=== PATIENT | female | born 1935 | race Caucasian/White ===

== ENCOUNTER → 2020-07-09 10:20 | Outpatient (CLI) | payer MEDICARE, OTHER, SELFPAY ==
[2020-07-09 15:38] LABS: COVID19 -Nasal RAPID Negative (Negative)
== END ==
PROVIDERS: PCP Student in an Organized Health Care Education/Training Program; Visit Provider Student in an Organized Health Care Education/Training Program
DX: Z01.812 Encounter for preprocedural laboratory examination (principal); Z20.822 Contact with and (suspected) exposure to COVID-19
CPT/HCPCS: 87635; C9803

== ENCOUNTER 2020-07-10 07:24 | Day surgery (SDC) | payer MEDICARE, OTHER, SELFPAY ==
[2020-07-10] MEDS: PROPARACAINE 0.5% OPHTH SOL 2 DROPS EYE-OP (07:44)
[2020-07-10] MEDS: CATARACT EYE COMPOUND (10 DROPS/SYRINGE) 3 DROPS EYE-OP (07:44)
[2020-07-10 07:59] VITALS: BP 176/81; PULSE 80; RESP 16; TEMP 37.1; O2SAT 99; BMI 24.7
--- NOTE | 2020-07-10 09:03 | PM.PREOP ---
Pre-operative Note Interval Note History & Physical reviewed/Exam performed by Physician: Yes Changes to H&P: No
--- NOTE | 2020-07-10 09:03 | PM.OP.1 ---
Operative Date/Time/Diagnoses Pre-op diagnosis: Nuclear cataract right eye Procedure & Clinicians Procedure: Cataract Surgery Same procedure as scheduled: Yes Surgeon: Blair Bone Anesthesia Type: MAC +/- and Sedation Operative Notes Procedure in detail: Patient brought to the operating suite. Tetracaine drops placed in the right eye. Patient was prepped and draped in sterile manner. Wire lid speculum was placed in the eye. Betadine drops were placed on the eye. This was irrigated. Lidocaine jelly was placed on the eye. A paracentesis port was created with a side-port blade. 0.1 mL 1% preservative free lidocaine was injected into the anterior chamber. The anterior chamber was deepened with viscoelastic. 2.6 mm keratome was used to create a temporal clear corneal incision. Cystotome and Utrata forceps were used to create continuous tear capsulorrhexis. Balanced salt solution was used to hydro dissect the nucleus. The phacoemulsification handpiece was inserted and the nucleus was removed using the stop and chop technique. The irrigation aspiration handpiece was inserted and the remaining cortex was removed. Anterior chamber was deepened with viscoelastic. An Souza ZCB00 intraocular lens with a power of 23.0 was injected into the capsular bag. Irrigation aspiration handpiece was inserted and the remaining viscoelastic was removed. Incision was hydrated with balanced salt solution and found to be leak free with pressure with Weck-Jeni sponges. 0.1 mL Vigamox injected anterior chamber. 0.3 mL Kenalog 10 mg was injected subconjunctivally. Lid speculum was removed. The patient left the operating room in excellent condition. Complications: none Post-operative Condition: stable Disposition: same day surgery
[2020-07-10] MEDS: LIDOCAINE 2% (GLYDO) 6 ML GEL TOP (09:22)
[2020-07-10] MEDS: TRIAMCINOLONE 50 MG/5 ML VIAL INJ (09:22)
[2020-07-10] MEDS: BALANCED SALT IRRIG SOLN NO.2 500 ML, EPINEPHrine 1 MG IRR (09:22)
[2020-07-10] MEDS: PHENYLEPHRINE/LIDOCAINE VIAL (OR) 0.2 ML EYE-OP (09:23)
[2020-07-10] MEDS: TETRACAINE 0.5% OPHTH DROPS 4 ML 2 DROPS EYE-OP (09:23)
[2020-07-10] MEDS: CHONDROIDTIN/SOD HYALURONATE 1.05 ML SYRINGE INTRAOCULA (09:23)
[2020-07-10] MEDS: MOXIFLOXACIN INJ 4 MG/0.8 ML VIAL 0.5 MG EYE-OP (09:23)
== END 2020-07-10 09:43 | disposition home or self-care (01) ==
PROVIDERS: PCP Family Medicine; Referring Provider Family Medicine; Visit Provider Ophthalmology
PROC: (CPT 66984; principal; 2020-07-10 09:15)
DX: H25.11 Age-related nuclear cataract, right eye (principal); E03.9 Hypothyroidism, unspecified
CPT/HCPCS: 66984; J0171; J2250; J3301

== ENCOUNTER → 2020-07-21 09:43 | Outpatient (CLI) | payer MEDICARE, OTHER, SELFPAY ==
[2020-07-21 12:00] LABS: COVID19 -Nasal RAPID Negative (Negative)
== END ==
PROVIDERS: PCP Family Medicine; Visit Provider Physician Assistant
DX: Z20.822 Contact with and (suspected) exposure to COVID-19 (principal); Z01.812 Encounter for preprocedural laboratory examination
CPT/HCPCS: 87635; C9803

== ENCOUNTER 2020-07-24 08:29 | Day surgery (SDC) | payer MEDICARE, OTHER, SELFPAY ==
[2020-07-24] MEDS: CATARACT EYE COMPOUND (10 DROPS/SYRINGE) 3 DROPS EYE-OP (08:54)
[2020-07-24] MEDS: PROPARACAINE 0.5% OPHTH SOL 2 DROPS EYE-OP (08:54)
[2020-07-24 09:13] VITALS: BP 183/81; PULSE 78; RESP 18; TEMP 36.3; O2SAT 99; BMI 24.7
--- NOTE | 2020-07-24 09:57 | P.OP_ITS ---
Operative Date/Time/Diagnoses Pre-op diagnosis: Nuclear Cataract Left eye Post-op diagnosis: same Procedure & Clinicians Same procedure as scheduled: Yes Surgeon: Blair Bone Anesthesia Type: MAC +/- and Sedation Operative Notes Procedure in detail: Patient brought to the operating suite. Tetracaine drops placed in the left eye. Patient was prepped and draped in sterile manner. Wire lid speculum was placed in the eye. Betadine drops were placed on the eye. This was irrigated. Lidocaine jelly was placed on the eye. A paracentesis port was created with a side-port blade. 0.1 mL 1% preservative free lidocaine was injected into the anterior chamber. The anterior chamber was deepened with viscoelastic. 2.6 mm keratome was used to create a temporal clear corneal incision. Cystotome and Utrata forceps were used to create continuous tear capsulorrhexis. Balanced salt solution was used to hydro dissect the nucleus. The phacoemulsification handpiece was inserted and the nucleus was removed using the stop and chop technique. The irrigation aspiration handpiece was inserted and the remaining cortex was removed. Anterior chamber was deepened with viscoe lastic. An Souza DIB00 intraocular lens with a power of 23.0 was injected into the capsular bag. Irrigation aspiration handpiece was inserted and the remaining viscoelastic was removed. Incision was hydrated with balanced salt solution and found to be leak free with pressure with Weck-Jeni sponges. 0.1 mL Vigamox injected anterior chamber. 0.3 mL Kenalog 10 mg was injected subconjunctivally. Lid speculum was removed. The patient left the operating room in excellent condition. Complications: none Post-operative Condition: stable Disposition: same day surgery
--- NOTE | 2020-07-24 09:57 | PM.PREOP ---
Pre-operative Note Interval Note History & Physical reviewed/Exam performed by Physician: Yes Changes to H&P: No
[2020-07-24] MEDS: CHONDROIDTIN/SOD HYALURONATE 1.05 ML SYRINGE INTRAOCULA (10:10)
[2020-07-24] MEDS: TRIAMCINOLONE 50 MG/5 ML VIAL INJ (10:11)
[2020-07-24] MEDS: MOXIFLOXACIN INJ 4 MG/0.8 ML VIAL 0.5 MG EYE-OP (10:11)
[2020-07-24] MEDS: TETRACAINE 0.5% OPHTH DROPS 4 ML 2 DROPS EYE-OP (10:11)
[2020-07-24] MEDS: PHENYLEPHRINE/LIDOCAINE VIAL (OR) 0.2 ML EYE-OP (10:11)
[2020-07-24] MEDS: BALANCED SALT IRRIG SOLN NO.2 500 ML, EPINEPHrine 1 MG IRR (10:12)
[2020-07-24] MEDS: LIDOCAINE 2% (GLYDO) 6 ML GEL TOP (10:12)
[2020-07-24 10:35] VITALS: BP 183/81; PULSE 78; RESP 18; TEMP 36.3; O2SAT 99
== END 2020-07-24 10:37 | disposition home or self-care (01) ==
PROVIDERS: PCP Family Medicine; Referring Provider Ophthalmology; Visit Provider Ophthalmology
PROC: (CPT 66984; principal; 2020-07-24 10:15)
DX: H25.12 Age-related nuclear cataract, left eye (principal); E03.9 Hypothyroidism, unspecified
CPT/HCPCS: 66984; J0171; J2250; J3301

== ENCOUNTER 2021-08-08 03:53 | Emergency (ER) | payer MEDICARE, OTHER, SELFPAY ==
--- NOTE | 2021-08-08 04:04 | ED.GENADULT ---
HPI - General Adult General Chief complaint: Chest Pain Stated complaint: HIGH BLOOD PRESSURE Time Seen by Provider: 08/08/21 04:04 History of Present Illness HPI narrative: 86-year-old woman with a history of hypothyroidism and hypertension presents with complaints of feeling shaky. She notes that when she feels like this she will check her blood pressure and it is elevated. It is not clear what her blood pressure is in between those times but she states that it is ?normal? even though she has not checked it. She was seen at [facility] for similar complaints about a week ago and was started on 50 mg of losartan. Those records have been requested. She did follow-up with the primary clinic after that with no changes and an appointment scheduled for the 6 to follow-up. Her complaints are otherwise vague. She does not specifically have headache, chest pain, abdominal pain, dyspnea, orthopnea, fevers, weakness and can not further elucidate on her claims of ?feeling shaky?. She does not describe fevers, cough, abdominal pain, vomiting, diarrhea or constipation. Medical records from [facility] visit on July 29 indicate very similar presentation. At that time she had indicated there was a in her family and since then she had been stressed and begin measuring blood pressures at home 5 days prior to arrival in the emergency department. She had been finding systolics no lower than the 150-160 range. Workup was otherwise unremarkable and she was discharged home with 50 mg tablets of losartan and instructions to follow-up with her primary care doctor Related Data Home Medications Medication Instructions Recorded Confirmed cholecalciferol (vitamin D3) 25 1,000 unit PO QDAY #0 12/24/16 07/24/20 mcg (1,000 unit) tablet (Vitamin D3) levothyroxine 100 mcg tablet 100 mcg PO QAM #0 12/24/16 07/24/20 (Synthroid) Previous Rx's Medication Instructions Recorded losartan 100 mg tablet 100 mg PO DAILY #30 tab 08/08/21 Allergies Allergy/AdvReac Type Severity Reaction Status Date / Time No Known Drug Allergies Allergy Verified 07/24/20 08:54 Review of Systems Review of Systems Narrative: Remainder of complete review of systems is otherwise unremarkable except for that included in the HPI. Patient History Medical History (Updated 08/08/21 @ 05:53 by Carito Dejesus MD) Cataracts, bilateral Hypertension Hypothyroidism (acquired) Social History household members: spouse Smoking Status: Never smoker alcohol intake: current Smoking Status: Never smoker alcohol intake frequency: holidays/special occasions only Substance Use Type: does not use Exam Initial Vital Signs Initial Vital Signs: Vital Signs Pulse Rate 103 H 08/08/21 04:07 Pulse Oximetry 97 08/08/21 04:07 General: Frail-appearing but in no acute distress. HEENT: Moist mucous membranes, normal sclera with reactive pupils, Neck: No JVD, supple Respiratory: Lungs are clear to auscultation, no wheezing no rales no rhonchi. Full and symmetrical air movement Cardiac: Regular rate and rhythm no murmurs no bruits Abdomen: Soft, nontender, good bowel tones, no flank pain Skin: Warm and dry, no rashes Neurologic: Grossly neurologically intact with no obvious asymmetries or abnormalities Extremities: No trauma, well perfused, no lower extremity edema Psych: Cooperative, slight confusion but fluent speech Course Orders Ordered: ED Orders 08/08/21 04:10 Complete Blood Count AUTO DIFF Stat Comprehensive Metabolic Panel Stat Magnesium Stat Troponin I Stat 08/08/21 04:23 XR chest 1V Stat Vital Signs Vital signs: Vital Signs - 8 hr 08/08/21 04:07 08/08/21 04:10 08/08/21 04:30 Temperature 97.8 F Pulse Rate 103 H 89 80 Respiratory Rate 15 Blood Pressure 224/101 H 217/89 H Pulse Oximetry 97 97 98 08/08/21 05:00 08/08/21 05:01 Temperature Pulse Rate 71 Respiratory Rate Blood Pressure 181/77 H Pulse Oximetry 98 96 Medical Decision Making Lab Data Result diagrams: 08/08/21 04:10 08/08/21 04:10 Labs: Lab Results 08/08/21 08/08/21 08/08/21 Range/Units 04:10 04:10 04:10 WBC 4.9 (4.5-11.0) X10^3/uL RBC 4.91 (4.0-5.2) X10^6/uL Hgb 13.8 (12.0-16.0) g/dL Hct 40.8 (36-46) % MCV 83.1 (80-100) fL MCH 28.2 (26-34) PG MCHC 33.9 (30-36) % RDW 13.5 (11.6-14.8) % Plt Count 151 (150-400) X10^3/uL Neut % (Auto) 55.9 (50-75) % Lymph % (Auto) 35.6 (25-40) % [place] % (Auto) 4.5 (3-14) % Eos % (Auto) 3.2 (2-4) % Baso % (Auto) 0.8 (0-2) % Neut # (Auto) 2700 (3728-3368) /uL Lymph # (Auto) 1700 (9161-2581) /uL [place] # (Auto) 200 (0-900) /uL Eos # (Auto) 200 (0-450) /uL Baso # (Auto) 0 (0-100) /uL Sodium 141 (137-145) mmol/L Potassium 3.9 (3.4-5.1) mmol/L Chloride 107 (98-107) mmol/L Carbon Dioxide 25 (22-32) mmol/L BUN 20 H (7-17) mg/dL Creatinine 0.78 (0.52-1.04) mg/dL Estimated GFR > 60 (>60) mL/min BUN/Creatinine Ratio 25.6 H (6-22) Glucose 153 H (80-110) mg/dL Calcium 9.3 (8.4-10.2) mg/dL Magnesium 1.9 (1.6-2.3) mg/dL Total Bilirubin 1.0 (0.2-1.3) mg/dL AST 26 (14-36) IU/L ALT 16 (<35) IU/L Alkaline Phosphatase 121 (38-126) U/L Troponin I < 0.012 (0.01-0.034) ng/mL Total Protein 8.1 (6.3-8.2) g/dL Albumin 4.6 (3.5-5.0) g/dL Globulin 3.5 (1.7-4.1) g/dL Albumin/Globulin Ratio 1.3 (1.0-2.8) Imaging Data Chest x-ray: Radiologist's Impression: No acute cardiopulmonary abnormalities identified Merle Jordan MD [facility] Narrative Medical decision making narrative: 86-year-old woman who recently began checking blood pressures noted that it was elevated was seen at [facility] with vague complaints started on losartan had a follow-up with her primary care doctor who agreed to continue this. This evening she was having pounding in her ear which was causing increased anxiety so she checked her blood pressure at 4 this morning and found it elevated at 220 4/101 and comes in for further evaluation. Workup is unremarkable. She is given her 50 mg of losartan and blood pressure comes down to 178/77. She continues to note the loud pulse in her ear but is otherwise asymptomatic. We discussed her reassuring workup, absence of stroke or heart attack symptoms. Suggested that we increase her losartan to 100 mg daily. She already has an appointment scheduled with her primary care doctor on August 13 for follow-up which will be appropriate. At this time, she is safe for discharge home Discharge Plan Departure Patient Disposition: Home Clinical Impression: Hypertension Qualifiers: Hypertension type: primary hypertension Qualified Code(s): I10 - Essential (primary) hypertension Instructions: DI for High Blood Pressure Activity Restrictions/Additional Instructions: Thank you for coming in tonight Your workup is reassuring. I do not find any evidence for a heart attack or a stroke. Your kidney function is responding nicely to starting the losartan. It does look like her body is responding nicely to the starting dose of losartan however I suspect that we need to increase the dose based on the continued elevated blood pressures. You were given a dose of 50 mg of losartan at 5:00 a.m. this morning. I would like you to take an additional 50 mg of losartan when you get home this morning. Tomorrow, I want you to start taking 100 mg of losartan in the morning. This will be 2 of the 50 mg pills. I am giving you a new prescription for the 100 mg pill size. 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 [place] Please keep your follow-up appointment with your new primary provider on the . If you find that you are getting worse or develop any new symptoms, please feel free to return to the emergency department for further evaluation. Prescriptions: New losartan 100 mg tablet 100 mg PO DAILY Qty: 30 0RF No Action levothyroxine [Synthroid] 100 MCG tablet 100 mcg PO QAM Qty: 0 0RF cholecalciferol (vitamin D3) [Vitamin D3] 1,000 UNIT tablet 1,000 unit PO QDAY Qty: 0 0RF Referrals: Sudha Yan PA-C [Primary Care Provider] -
[2021-08-08 04:07] VITALS: PULSE 103; O2SAT 97
[2021-08-08 04:10] VITALS: BP 224/101; PULSE 89; RESP 15; TEMP 36.6; O2SAT 97; BMI 25.2
--- NOTE | 2021-08-08 04:20 | PC.NURSE ---
Pt instructed by to take her home dose of Losartan. Pt provided with water for this.
--- NOTE | 2021-08-08 04:23 | DI.RAD.S_ITS ---
PROCEDURE: XR CHEST 1V INDICATIONS: Significantly elevated blood pressure TECHNIQUE: One view of the chest was acquired. COMPARISON: None. FINDINGS: Surgical changes and devices: Bilateral breast implants with calcified capsules.. Lungs and pleura: Lungs are clear. No pleural effusions or pneumothorax. Mediastinum: Mediastinal contours appear normal. Heart size is normal. Bones and chest wall: No suspicious bony lesions. Overlying soft tissues appear unremarkable. IMPRESSION: No acute cardiopulmonary disease process. Dictated by: Danya Freeman MD, PhD on 08/08/2021 at 8:13 Approved by: Danya Freeman MD, PhD on 08/08/2021 at 8:13
[2021-08-08 04:30] VITALS: BP 217/89; PULSE 80; O2SAT 98
[2021-08-08 04:49] LABS: Add Manual Diff / Slide Review NO; Basophils Absolute Auto 0 /uL (0-100); Basophils Percent Auto 0.8 % (0-2); Eosinophils Absolute Auto 200 /uL (0-450); Eosinophils Percent Auto 3.2 % (2-4); Hematocrit 40.8 % (36-46); Hemoglobin 13.8 g/dL (12.0-16.0); Lymphocytes Absolute Auto 1700 /uL (1100-4500); Lymphocytes Percent Auto 35.6 % (25-40); Mean Corpuscular HGB Conc 33.9 % (30-36); Mean Corpuscular Hemoglobin 28.2 PG (26-34); Mean Corpuscular Volume 83.1 fL (80-100); Monocytes Absolute Auto 200 /uL (0-900); Monocytes Percent Auto 4.5 % (3-14); Neutrophils Absolute Auto 2700 /uL (1500-7000); Neutrophils Percent Auto 55.9 % (50-75); Platelet Count 151 X10^3/uL (150-400); Red Blood Cell Count 4.91 X10^6/uL (4.0-5.2); Red Cell Distribution Width 13.5 % (11.6-14.8); White Blood Cell Count 4.9 X10^3/uL (4.5-11.0)
[2021-08-08 04:53] LABS: Alanine Aminotransferase 16 IU/L (<35); Albumin 4.6 g/dL (3.5-5.0); Albumin Globulin Ratio 1.3 (1.0-2.8); Alkaline Phosphatase 121 U/L (38-126); Aspartate Aminotransferase 26 IU/L (14-36); BUN Creatinine Ratio 25.6 (6-22); Blood Urea Nitrogen 20 mg/dL (7-17); Calcium 9.3 mg/dL (8.4-10.2); Carbon Dioxide 25 mmol/L (22-32); Chloride 107 mmol/L (98-107); Estimated Glomerular Filt Rate > 60 mL/min (>60); Globulin 3.5 g/dL (1.7-4.1); Glucose 153 mg/dL (80-110); HEMOLYSIS < 15 (0-50); Magnesium 1.9 mg/dL (1.6-2.3); Potassium 3.9 mmol/L (3.4-5.1); Sodium 141 mmol/L (137-145); Total Protein 8.1 g/dL (6.3-8.2)
[2021-08-08 05:00] VITALS: O2SAT 98
[2021-08-08 05:01] VITALS: BP 181/77; PULSE 71; O2SAT 96
[2021-08-08 05:04] LABS: Troponin I < 0.012 ng/mL (0.01-0.034)
== END 2021-08-08 06:09 | disposition home or self-care (01) ==
PROVIDERS: Emergency Provider Emergency Medicine; PCP Physician Assistant
DX: I10 Essential (primary) hypertension (principal); R07.9 Chest pain, unspecified
CPT/HCPCS: 71045; 80053; 83735; 84484; 85025; 99283

== ENCOUNTER 2021-08-28 12:45 | Emergency (ER) | payer MEDICARE, OTHER, SELFPAY ==
[2021-08-28] VITALS (8 sets, daily range): BP systolic 180–216; BP diastolic 81–89; PULSE 73–86; RESP 15–28; TEMP 36.7; O2SAT 93–97; BMI 25.4
[2021-08-28 14:35] LABS: Add Manual Diff / Slide Review NO; Basophils Absolute Auto 0 /uL (0-100); Basophils Percent Auto 0.5 % (0-2); Eosinophils Absolute Auto 100 /uL (0-450); Eosinophils Percent Auto 0.9 % (2-4); Hematocrit 38.4 % (36-46); Hemoglobin 12.9 g/dL (12.0-16.0); Lymphocytes Absolute Auto 1000 /uL (1100-4500); Lymphocytes Percent Auto 17.3 % (25-40); Mean Corpuscular HGB Conc 33.5 % (30-36); Mean Corpuscular Hemoglobin 27.6 PG (26-34); Mean Corpuscular Volume 82.5 fL (80-100); Monocytes Absolute Auto 300 /uL (0-900); Monocytes Percent Auto 5.1 % (3-14); Neutrophils Absolute Auto 4400 /uL (1500-7000); Neutrophils Percent Auto 76.2 % (50-75); Platelet Count 168 X10^3/uL (150-400); Red Blood Cell Count 4.66 X10^6/uL (4.0-5.2); Red Cell Distribution Width 13.6 % (11.6-14.8); White Blood Cell Count 5.7 X10^3/uL (4.5-11.0)
[2021-08-28 14:39] LABS: HEMOLYSIS < 15 (0-50)
[2021-08-28 14:44] LABS: Alanine Aminotransferase 15 IU/L (<35); Albumin 4.5 g/dL (3.5-5.0); Albumin Globulin Ratio 1.5 (1.0-2.8); Alkaline Phosphatase 105 U/L (38-126); Aspartate Aminotransferase 23 IU/L (14-36); BUN Creatinine Ratio 20.8 (6-22); Bilirubin Total 1.4 mg/dL (0.2-1.3); Blood Urea Nitrogen 16 mg/dL (7-17); Calcium 9.2 mg/dL (8.4-10.2); Carbon Dioxide 27 mmol/L (22-32); Chloride 106 mmol/L (98-107); Creatine Kinase 74 U/L (30-135); Estimated Glomerular Filt Rate > 60 mL/min (>60); Glucose 95 mg/dL (80-110); Lipase 87 U/L (23-300); Magnesium 2.1 mg/dL (1.6-2.3); Potassium 3.9 mmol/L (3.4-5.1); Sodium 140 mmol/L (137-145); Total Protein 7.5 g/dL (6.3-8.2)
--- NOTE | 2021-08-28 15:11 | PC.NURSE ---
Pt declining xray. Notified [facility] Crew who is aware.
--- NOTE | 2021-08-28 15:13 | ED.GENADULT ---
HPI - General Adult <SARAH Hendricks - Last Filed: 08/28/21 16:59> General Chief complaint: Hypertension Stated complaint: High blood pressure Time Seen by Provider: 08/28/21 14:53 Source: patient Mode of arrival: Family Vehicle History of Present Illness HPI narrative: This is 86-year-old with history of hypertension who started losartan 100 mg tablets for hypertension approximately one week ago, she was started on amlodipine yesterday for ongoing hypertension by her primary care provider CHARLENE Yan and took her 1st dose of five this morning at 1000 hours. Patient comes to the emergency department today for lightheadedness and feeling ?woozy ?when her blood pressure is elevated. Patient states her blood pressure was elevated this morning, she felt lightheaded and like her mentation was clouded, she took her amlodipine after picking the prescription and she takes her losartan at nighttime so she did not take that one. Patient's only other medication is levothyroxine, patient states that she had a little bit of chest discomfort but that has since subsided. She denies any nausea vomiting, chills, shortness of breath, difficulty breathing, wheezing, chest tightness, radiation chest discomfort or any active current chest pain at this time. She denies any changes to urination or her stools she denies any significant cardiac history, denies being a smoker or having a history of any lung problems. Patient was seen in the emergency department approximately one week ago and had a negative chest x-ray that time, she is refusing have a chest x-ray today that she denies any acute changes since then. Related Data Home Medications Medication Instructions Recorded Confirmed cholecalciferol (vitamin D3) 25 1,000 unit PO QDAY ##0 12/24/16 07/24/20 mcg (1,000 unit) tablet (Vitamin D3) levothyroxine 100 mcg tablet 100 mcg PO QAM ##0 12/24/16 07/24/20 (Synthroid) Previous Rx's Medication Instructions Recorded losartan 100 mg tablet 100 mg PO DAILY #30 tabs 08/08/21 Allergies Allergy/AdvReac Type Severity Reaction Status Date / Time No Known Drug Allergies Allergy Verified 08/28/21 13:02 Review of Systems <SARAH Hendricks - Last Filed: 08/28/21 16:59> Review of Systems Narrative: General: denies fever, chills, malaise, sweats, fatigue Head/Neck: denies headache, neck pain, dizziness Eyes: denies visual changes, eye pain Cardio: denies chest pain, palpitations, edema but endorses some chest discomfort which occurred this morning and has since left Respiratory: denies dyspnea, cough, orthopnea GI: denies abdominal pain, nausea, vomiting, or diarrhea : denies dysuria, hematuria, urinary retention, frequency or incontinence MSK: denies joint pain, muscle weakness Skin: denies rash, itching, skin lesions or other Neuro: denies numbness, tingling Patient History <SARAH Hendricks - Last Filed: 08/28/21 16:59> Medical History Cataracts, bilateral Hypertension Hypothyroidism (acquired) Social History household members: spouse Smoking Status: Former smoker alcohol intake: current Smoking Status: Former smoker tobacco type: cigarettes alcohol intake frequency: holidays/special occasions only Substance Use Type: does not use Exam <SARAH Hendricks - Last Filed: 08/28/21 16:59> Narrative Exam Narrative: Independently reviewed vitals signs and nursing notes. General: cooperative, comfortable, in no acute distress, well groomed Head: atraumatic, symmetrical facial expressions Neck: supple Eyes: equal round and reactive, EOMI, conjunctiva normal Nose: nares patent, no rhinorrhea Mouth/Throat: moist mucus membranes Cardiovascular: regular rate and rhythm S1-S2 without additional sounds, no peripheral edema, warm extremities Respiratory: normal effort, able to speak in complete sentences, no audible wheezing, stridor, or rales. No retractions or tachypnea. GI: abdomen soft, nontender to palpation, nondistended, no masses, no exquisite tenderness with exam, without guarding or rebound. MSK: moves all extremities, neurovascularly intact, no weakness, normal tone Skin: brisk capillary refill, no rash, no erythema Neuro: normal speech and cognition, A&O x3 Psych: mental status is grossly normal, congruent mood, normal affect, pleasant and cooperative Initial Vital Signs Initial Vital Signs: Vital Signs Temperature 98.1 F 08/28/21 12:58 Pulse Rate 80 08/28/21 12:58 Respiratory Rate 18 08/28/21 12:58 Blood Pressure 216/89 H 08/28/21 12:58 Pulse Oximetry 97 08/28/21 12:58 Oxygen Delivery Method 08/28/21 12:58 <Garry Rodrigues MD - Last Filed: 08/28/21 21:08> Initial Vital Signs Initial Vital Signs: Vital Signs Temperature 98.1 F 08/28/21 12:58 Pulse Rate 80 08/28/21 12:58 Respiratory Rate 18 08/28/21 12:58 Blood Pressure 216/89 H 08/28/21 12:58 Pulse Oximetry 97 08/28/21 12:58 Oxygen Delivery Method 08/28/21 12:58 Scores <SARAH Hendricks - Last Filed: 08/28/21 16:59> HEART Score Heart Score history: Slightly Suspicious Heart Score EKG: Normal Heart Score Age: > or = 65 years old Heart Score risk factors: 1-2 risk factors Heart Score troponin: < or = to normal limit Heart Score Total: 3 <Garry Rodrigues MD - Last Filed: 08/28/21 21:08> HEART Score Heart Score Total: 3 Course <SARAH Hendricks - Last Filed: 08/28/21 16:59> Orders Ordered: ED Orders 08/28/21 14:22 EKG-12 Lead Stat 08/28/21 14:30 Complete Blood Count AUTO DIFF Stat Comprehensive Metabolic Panel Stat Lipase Stat Magnesium Stat Troponin & CK Cardiac Panel Stat 08/28/21 15:13 UA dip and micro [Urinalysis and Microscopic] Stat 08/28/21 15:53 Consult to Hospitalist Service Stat Vital Signs Vital signs: Vital Signs - 8 hr 08/28/21 15:09 08/28/21 16:33 08/28/21 15:30 Pulse Rate 86 73 79 Respiratory Rate 18 Blood Pressure 180/81 H Pulse Oximetry 97 93 95 Oxygen Delivery Method Room Air 08/28/21 15:32 08/28/21 15:32 08/28/21 15:49 Pulse Rate 79 Respiratory Rate Blood Pressure 196/84 H 180/81 H Pulse Oximetry 95 Oxygen Delivery Method 08/28/21 15:49 08/28/21 16:00 08/28/21 16:30 Pulse Rate 85 83 80 Respiratory Rate 15 23 28 H Blood Pressure Pulse Oximetry 97 96 95 Oxygen Delivery Method <Garry Rodrigues MD - Last Filed: 08/28/21 21:08> Orders Ordered: ED Orders 08/28/21 14:22 EKG-12 Lead Stat 08/28/21 14:30 Complete Blood Count AUTO DIFF Stat Comprehensive Metabolic Panel Stat Lipase Stat Magnesium Stat Troponin & CK Cardiac Panel Stat 08/28/21 15:13 UA dip and micro [Urinalysis and Microscopic] Stat 08/28/21 15:53 Consult to Hospitalist Service Stat Vital Signs Vital signs: Vital Signs - 8 hr 08/28/21 15:09 08/28/21 16:33 08/28/21 15:30 Pulse Rate 86 73 79 Respiratory Rate 18 Blood Pressure 180/81 H Pulse Oximetry 97 93 95 Oxygen Delivery Method Room Air 08/28/21 15:32 08/28/21 15:32 08/28/21 15:49 Pulse Rate 79 Respiratory Rate Blood Pressure 196/84 H 180/81 H Pulse Oximetry 95 Oxygen Delivery Method 08/28/21 15:49 08/28/21 16:00 08/28/21 16:30 Pulse Rate 85 83 80 Respiratory Rate 15 23 28 H Blood Pressure Pulse Oximetry 97 96 95 Oxygen Delivery Method Medical Decision Making <SARAH Hendricks - Last Filed: 08/28/21 16:59> Lab Data Result diagrams: 08/28/21 14:30 08/28/21 14:30 Labs: Lab Results 08/28/21 08/28/21 08/28/21 Range/Units 14:30 14:30 15:50 WBC 5.7 (4.5-11.0) X10^3/uL RBC 4.66 (4.0-5.2) X10^6/uL Hgb 12.9 (12.0-16.0) g/dL Hct 38.4 (36-46) % MCV 82.5 (80-100) fL MCH 27.6 (26-34) PG MCHC 33.5 (30-36) % RDW 13.6 (11.6-14.8) % Plt Count 168 (150-400) X10^3/uL Neut % (Auto) 76.2 H (50-75) % Lymph % (Auto) 17.3 L (25-40) % [place] % (Auto) 5.1 (3-14) % Eos % (Auto) 0.9 L (2-4) % Baso % (Auto) 0.5 (0-2) % Neut # (Auto) 4400 (3693-3389) /uL Lymph # (Auto) 1000 L (6869-7995) /uL [place] # (Auto) 300 (0-900) /uL Eos # (Auto) 100 (0-450) /uL Baso # (Auto) 0 (0-100) /uL Sodium 140 (137-145) mmol/L Potassium 3.9 (3.4-5.1) mmol/L Chloride 106 (98-107) mmol/L Carbon Dioxide 27 (22-32) mmol/L BUN 16 (7-17) mg/dL Creatinine 0.77 (0.52-1.04) mg/dL Estimated GFR > 60 (>60) mL/min BUN/Creatinine Ratio 20.8 (6-22) Glucose 95 (80-110) mg/dL Calcium 9.2 (8.4-10.2) mg/dL Magnesium 2.1 (1.6-2.3) mg/dL Total Bilirubin 1.4 H (0.2-1.3) mg/dL AST 23 (14-36) IU/L ALT 15 (<35) IU/L Alkaline Phosphatase 105 (38-126) U/L Total Creatine Kinase 74 (30-135) U/L CK-MB (CK-2) TNP CK-MB (CK-2) Rel Index TNP Troponin I < 0.012 (0.01-0.034) ng/mL Total Protein 7.5 (6.3-8.2) g/dL Albumin 4.5 (3.5-5.0) g/dL Globulin 3.0 (1.7-4.1) g/dL Albumin/Globulin Ratio 1.5 (1.0-2.8) Lipase 87 (23-300) U/L Urine Color Yellow Urine Appearance Clear Urine pH 7.0 (4.5-8.0) Ur Specific [place] <=1.005 (1.000-1.035) Urine Protein Negative (Negative) Urine Glucose (UA) Negative (Negative) g/dL Urine Ketones Negative (NEGATIVE) Urine Occult Blood Trace-lysed (Negative) Urine Nitrate Negative (Negative) Urine Bilirubin Negative (NEGATIVE) Urine Urobilinogen 0.2 (0.2) E.U./dL Ur Leukocyte Esterase Negative (NEGATIVE) Urine RBC 0-1/hpf (0-5/HPF) Urine WBC 0-1/hpf (0-5/HPF) Urine Bacteria None seen (None) Ur Culture Indicated? Cult not indicated Urine Dip Bedside Urine Glucose Negative Bedside Urine Bilirubin - Negative Bedside Urine Ketone - Negative Urine Specific [place] 1.010 Bedside Urine Occult Blood +/- Bedside Urine pH 6.5 Bedside Urine Protein - Negative Bedside Urine Urobilinogen - Negative Bedside Urine Nitrite - Negative Bedside Urine Leukocytes - Negative Esterase Point of care testing: Urine Dip Bedside Urine Glucose Negative Bedside Urine Bilirubin - Negative Bedside Urine Ketone - Negative Urine Specific [place] 1.010 Bedside Urine Occult Blood +/- Bedside Urine pH 6.5 Bedside Urine Protein - Negative Bedside Urine Urobilinogen - Negative Bedside Urine Nitrite - Negative Bedside Urine Leukocytes - Negative Esterase Imaging Data Chest x-ray: Radiologist's Impression: PROCEDURE:? XR CHEST 1V ? INDICATIONS:? Significantly elevated blood pressure ? TECHNIQUE:? One view of the chest was acquired.? ? COMPARISON:? None. ? FINDINGS:? ? Surgical changes and devices:? Bilateral breast implants with calcified capsules..? ? Lungs and pleura:? Lungs are clear.? No pleural effusions or pneumothorax.? ? Mediastinum:? Mediastinal contours appear normal.? Heart size is normal.? ? Bones and chest wall:? No suspicious bony lesions.? Overlying soft tissues appear unremarkable.? ? IMPRESSION:? No acute cardiopulmonary disease process. ? ? Dictated by: Danya Freeman MD, PhD on 08/08/2021 at 8:13 ? ? Approved by: Danya Freeman MD, PhD on 08/08/2021 at 8:13 ? ECG Data Interpretation: EKG independently reviewed by Dr. Rodrigues at 1435 and reveals normal sinus rhythm at 84 bpm with regular axis and intervals. No STEMI, ST segment changes, arrhythmia, or acute ischemic changes. MDM Narrative Medical decision making narrative: This is an 86-year-old female presents to the emergency department concerned about her hypertension this morning with a systolic over 200 after her primary care visit yesterday with MELANI Yan and starting 5mg daily amlodipine today in addition to her nightly losartan 100 mg. Patient presents to the emergency department after taking her amlodipine dose, states this was at 1000 hours, she states that she takes her losartan at nighttime, and has not had a chance to take it yet. Patient was started on losartan one week ago for hypertension by her primary care provider, yesterday she had an appointment and she was started on amlodipine 5 mg daily and took her 1st dose this morning, denies any symptoms recently of chest pain, pressure, shortness of breath, fever, chills, abdominal pain, diarrhea, nausea vomiting. She denies any increased fatigue, denies having any wounds, states that this morning she did have some pinching sensation in her left chest. Her chest x-ray was negative for acute cardiopulmonary disease process today, heart size was normal on x-ray, heart sounds were normal without tachycardia, S1-S2 without ectopy or ST changes, no leukocytosis, total bilirubin is elevated at 1.4 from a prior 1.0 however no other abnormal lab findings today. Patient does not have any abdominal pain to palpation, denies any shortness of breath or any exertional chest pain. UA is negative for any white blood cells, nitrates, only shows a trace of blood and patient denied any genitourinary symptoms. Discussed patient's lab findings with her, she is aware that her total bilirubin was slightly elevated and understands to follow-up with her primary care provider about this. Her blood pressure was elevated initially in the emergency department but came down to 180s and stay there for most of her visit today. Patient was given strict return precautions, understands to follow-up with her primary care provider, denies any chest pain and no signs cardiac event were found on her workup today. Patient is appropriate and amenable to discharge home. Vital signs are stable on repeat examination is unremarkable. Patient has been informed of results. Patient has been given strict return to ER precautions for any new or worsening symptoms. Patient understands to follow up closely with outpatient providers as instructed. Patient understands plan and agrees to discharge home. All questions and concerns answered at this time. <Garry Rodrigues MD - Last Filed: 08/28/21 21:08> Lab Data Labs: Lab Results 08/28/21 08/28/21 08/28/21 Range/Units 14:30 14:30 15:50 WBC 5.7 (4.5-11.0) X10^3/uL RBC 4.66 (4.0-5.2) X10^6/uL Hgb 12.9 (12.0-16.0) g/dL Hct 38.4 (36-46) % MCV 82.5 (80-100) fL MCH 27.6 (26-34) PG MCHC 33.5 (30-36) % RDW 13.6 (11.6-14.8) % Plt Count 168 (150-400) X10^3/uL Neut % (Auto) 76.2 H (50-75) % Lymph % (Auto) 17.3 L (25-40) % [place] % (Auto) 5.1 (3-14) % Eos % (Auto) 0.9 L (2-4) % Baso % (Auto) 0.5 (0-2) % Neut # (Auto) 4400 (4686-5646) /uL Lymph # (Auto) 1000 L (2853-4614) /uL [place] # (Auto) 300 (0-900) /uL Eos # (Auto) 100 (0-450) /uL Baso # (Auto) 0 (0-100) /uL Sodium 140 (137-145) mmol/L Potassium 3.9 (3.4-5.1) mmol/L Chloride 106 (98-107) mmol/L Carbon Dioxide 27 (22-32) mmol/L BUN 16 (7-17) mg/dL Creatinine 0.77 (0.52-1.04) mg/dL Estimated GFR > 60 (>60) mL/min BUN/Creatinine Ratio 20.8 (6-22) Glucose 95 (80-110) mg/dL Calcium 9.2 (8.4-10.2) mg/dL Magnesium 2.1 (1.6-2.3) mg/dL Total Bilirubin 1.4 H (0.2-1.3) mg/dL AST 23 (14-36) IU/L ALT 15 (<35) IU/L Alkaline Phosphatase 105 (38-126) U/L Total Creatine Kinase 74 (30-135) U/L CK-MB (CK-2) TNP CK-MB (CK-2) Rel Index TNP Troponin I < 0.012 (0.01-0.034) ng/mL Total Protein 7.5 (6.3-8.2) g/dL Albumin 4.5 (3.5-5.0) g/dL Globulin 3.0 (1.7-4.1) g/dL Albumin/Globulin Ratio 1.5 (1.0-2.8) Lipase 87 (23-300) U/L Urine Color Yellow Urine Appearance Clear Urine pH 7.0 (4.5-8.0) Ur Specific [place] <=1.005 (1.000-1.035) Urine Protein Negative (Negative) Urine Glucose (UA) Negative (Negative) g/dL Urine Ketones Negative (NEGATIVE) Urine Occult Blood Trace-lysed (Negative) Urine Nitrate Negative (Negative) Urine Bilirubin Negative (NEGATIVE) Urine Urobilinogen 0.2 (0.2) E.U./dL Ur Leukocyte Esterase Negative (NEGATIVE) Urine RBC 0-1/hpf (0-5/HPF) Urine WBC 0-1/hpf (0-5/HPF) Urine Bacteria None seen (None) Ur Culture Indicated? Cult not indicated Urine Dip Bedside Urine Glucose Negative Bedside Urine Bilirubin - Negative Bedside Urine Ketone - Negative Urine Specific [place] 1.010 Bedside Urine Occult Blood +/- Bedside Urine pH 6.5 Bedside Urine Protein - Negative Bedside Urine Urobilinogen - Negative Bedside Urine Nitrite - Negative Bedside Urine Leukocytes - Negative Esterase Point of care testing: Urine Dip Bedside Urine Glucose Negative Bedside Urine Bilirubin - Negative Bedside Urine Ketone - Negative Urine Specific [place] 1.010 Bedside Urine Occult Blood +/- Bedside Urine pH 6.5 Bedside Urine Protein - Negative Bedside Urine Urobilinogen - Negative Bedside Urine Nitrite - Negative Bedside Urine Leukocytes - Negative Esterase Discharge Plan Departure Patient Disposition: Home Clinical Impression: Hypertension Instructions: DI for High Blood Pressure Activity Restrictions/Additional Instructions: *You have been diagnosed with high blood pressure and symptoms that go along with it, for you, lightheadedness and not feeling your best. Your blood pressure has come down to a safe range for you, anything in the 180 range/xx is tolerable. Your EKG does not show any changes in your heart rhythm or show any concern for heart strain, your troponin is negative which is an indicator of your heart is function, you do not have any elevation in your white blood cell count which would concern me for infection. Please follow-up with Sudha Yan within a week regarding your blood pressure. I think that your blood pressure is currently under control with these medications but it might take a few days to balance out. Your urine did not show any significant infection, there was trace of blood found in the urine dip, I will call you if the microscopic evaluation of your urine is concerning for infection. Please stay hydrated, eat a low-salt diet, try to avoid stimulants and caffeine as much as possible. Please return to the emergency department if you have any lightheadedness like you did, other concerning symptoms, chest pain, shortness of breath, or other abnormal finding. Please stay hydrated, you could have been slightly dehydrated this morning as well. Overall your liver enzymes were normal but one of them called your total bilirubin was slightly elevated today at 1.4. Please follow-up with your primary care provider about this or return to the emergency department if you also abdominal pain that is worsening. *What to do: *Please continue to take your regular medications as directed. [ ] New medication prescriptions sent to your pharmacy: [ ] [ ] New medication written as a paper prescription [ x] No new medications given *Please follow up with your primary care provider in 2-3 days, call for an appointment. Let them know you were seen in the Emergency Department and that we asked that you be seen for follow-up. We will electronically transmit a record of today's note if your PCP is in our system *If you do not have a primary care provider please contact [phone] to establish care with one of the [facility] primary care providers. *Return to Emergency Department if you should have any new, worsening or concerning symptoms, such as [fever greater than 101F, chills, worsening pain, persistent vomiting or other bothersome symptoms] Prescriptions: No Action levothyroxine [Synthroid] 100 MCG tablet 100 mcg PO QAM Qty: 0 cholecalciferol (vitamin D3) [Vitamin D3] 1,000 UNIT tablet 1,000 unit PO QDAY Qty: 0 losartan 100 mg tablet 100 mg PO DAILY Qty: 30 0RF Referrals: Sudha Yan PA-C [Primary Care Provider] - Visit Report Forms: Patient Portal/API
--- NOTE | 2021-08-28 15:14 | PC.NURSE ---
Pt reports increased blood pressure that began this morning after taking a new medication of 5 mg of amlodipine. Pt reports hearing pulsing in ears while at rest. Pt BP at 1100 was reported as 201/96. First BP in room at 222/94. Pt also began taking 100 mg losartan last week.
[2021-08-28 15:38] LABS: Troponin I < 0.012 ng/mL (0.01-0.034)
[2021-08-28 16:20] LABS: Appearance Urine UA CLEAR; Bilirubin Urine UA NEGATIVE (NEGATIVE); Color Urine UA YELLOW; Glucose Urine UA NEGATIVE (Negative); Ketones Urine UA NEGATIVE (NEGATIVE); Leukocyte Esterase Urine UA NEGATIVE (NEGATIVE); Nitrite Urine UA NEGATIVE (Negative); Occult Blood Urine UA TRACE-LYSED (Negative); Protein Urine UA NEGATIVE (Negative); Specific Gravity Urine UA <=1.005 (1.000-1.035); Urobilinogen Urine UA 0.2 E.U./dL (0.2)
[2021-08-28 16:33] LABS: Bacteria Urine None Seen; Culture Indicated Urine Cult Not Indicated; RBC Urine 0-1/HPF (0-5/HPF); WBC Urine 0-1/HPF (0-5/HPF)
== END 2021-08-28 16:38 | disposition home or self-care (01) ==
PROVIDERS: Emergency Medicine; Emergency Provider Nurse Practitioner Critical Care Medicine; PCP Physician Assistant
DX: I10 Essential (primary) hypertension (principal); R07.9 Chest pain, unspecified
CPT/HCPCS: 80053; 81001; 81003; 82550; 83690; 83735; 84484; 85025; 93005; 99283; 99284

== ENCOUNTER 2023-01-28 12:45 | Emergency (ER) | payer MEDICARE, OTHER, SELFPAY ==
[2023-01-28] VITALS (17 sets, daily range): BP systolic 180–228; BP diastolic 91–109; PULSE 70–96; RESP 11–20; TEMP 37.5; O2SAT 96–98; BMI 24.1
--- NOTE | 2023-01-28 12:58 | DI.RAD.S_ITS ---
PROCEDURE: XR CHEST 1V INDICATIONS: chest pain TECHNIQUE: One view of the chest was acquired. COMPARISON: [facility], CR, XR CHEST 1V, 08/08/2021, 4:34. FINDINGS: Surgical changes and devices: None. Lungs and pleura: Lungs are clear. No pleural effusions or pneumothorax. Mediastinum: Mediastinal contours appear normal. Cardiomegaly. Bones and chest wall: No suspicious bony lesions. Overlying soft tissues appear unremarkable. IMPRESSION: Cardiomegaly. No evidence acute pulmonary process. Dictated by: Nam Moe M.D. on 01/28/2023 at 13:43 Approved by: Nam Moe M.D. on 01/28/2023 at 13:44
--- NOTE | 2023-01-28 12:59 | DI.CT.S_ITS ---
PROCEDURE: CT HEAD/BRAIN WO CON INDICATIONS: htn/blurry vision TECHNIQUE: Noncontrast 4.5 mm thick angled axial sections acquired from the foramen magnum to the vertex, with coronal and sagittal reformats. For radiation dose reduction, the following was used: automated exposure control, adjustment of mA and/or kV according to patient size. COMPARISON: None. FINDINGS: Image quality: Excellent. CSF spaces: Basal cisterns are patent. No extra-axial fluid collections. The ventricles are symmetric in size and shape. Brain: No intracranial bleeds or masses. There is cerebral volume loss for age, with resultant ventricular and sulcal prominence. There are periventricular and deep white matter chronic small vessel ischemic changes. There is intracranial internal carotid artery atherosclerosis. Skull and face: Calvarium and visualized facial bones appear intact, without suspicious lesions. Sinuses: Visualized sinuses and mastoids are clear. IMPRESSION: No acute intracranial pathology. Dictated by: Nam Moe M.D. on 01/28/2023 at 13:41 Approved by: Nam Moe M.D. on 01/28/2023 at 13:42
--- NOTE | 2023-01-28 13:16 | DI.CT.S_ITS ---
PROCEDURE: CT ANGIO HEAD AND NECK INDICATIONS: htn TECHNIQUE: After the administration of intravenous contrast, 1 mm thick sections acquired from the aortic arch through the [place] of [place]. 3-dimensional [id number] (MIP) and/or volume rendering reformats were acquired of the central intracranial vasculature and neck separately. For radiation dose reduction, the following was used: automated exposure control, adjustment of mA and/or kV according to patient size. COMPARISON: None. FINDINGS: Image quality: Diagnostic. BRAIN: CSF spaces: Ventricles are normal in size and shape. Basal cisterns are patent. No extra-axial fluid collections. Brain: No significant abnormality of the brain can be seen. Skull and face: Calvarium and facial bones appear intact, without suspicious lesions. Orbits appear normal. Sinuses: Sinuses and mastoids are clear. HEAD CT ANGIOGRAPHY: Anterior circulation: Intracranial internal carotid arteries are normal in size and flow. Atheromatous calcifications are noted within the cavernous portion of the bilateral internal carotid arteries with mild resultant stenosis. The flow within the paired anterior cerebral arteries is normal and symmetric. The flow within the middle cerebral arteries is normal and symmetric. The anterior communicating artery is seen. No aneurysms are seen. Posterior circulation: Visualized portions of the vertebral arteries demonstrate normal caliber, and join to form a normal appearing basilar artery. Flow within the posterior cerebral arteries is normal and symmetric. No aneurysms are seen. NECK CT ANGIOGRAPHY: Carotid system: Scattered atheromatous calcifications are present within the aortic arch. The great vessels demonstrate a conventional anatomy as they arise from the aortic arch. The origins of the common carotid arteries appear patent. The common carotid arteries demonstrate normal caliber and courses. The bifurcation regions are both widely patent. The internal carotid arteries demonstrate normal calibers and courses. Posterior circulation: The origins of the vertebral arteries both appear widely patent. The more superior extracranial portions of both vertebral arteries also demonstrate normal courses and calibers. They join to form a normal appearing basilar artery. Soft tissues: Visualized neck soft tissues demonstrate no suspicious abnormalities. Bones: No suspicious bony lesions. Visualized cervical spine appears normally aligned. IMPRESSION: 1. 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 2. No other stenosis, occlusion, or aneurysm. Any quantitative measurements of stenosis were performed using NASCET criteria. Dictated by: Clementina Fernandez M.D. on 01/28/2023 at 13:36 Approved by: Clementina Fernandez M.D. on 01/28/2023 at 13:40
[2023-01-28 13:25] LABS: Add Manual Diff / Slide Review NO; Basophils Absolute Auto 0 /uL (0-100); Basophils Percent Auto 0.8 % (0-2); Eosinophils Absolute Auto 100 /uL (0-450); Eosinophils Percent Auto 1.7 % (2-4); Hematocrit 41.5 % (36-46); Lymphocytes Absolute Auto 900 /uL (1100-4500); Lymphocytes Percent Auto 18.8 % (25-40); Mean Corpuscular HGB Conc 33.8 % (30-36); Mean Corpuscular Hemoglobin 28.2 PG (26-34); Mean Corpuscular Volume 83.5 fL (80-100); Monocytes Absolute Auto 200 /uL (0-900); Monocytes Percent Auto 3.9 % (3-14); Neutrophils Absolute Auto 3800 /uL (1500-7000); Neutrophils Percent Auto 74.8 % (50-75); Platelet Count 147 X10^3/uL (150-400); Red Blood Cell Count 4.97 X10^6/uL (4.0-5.2); Red Cell Distribution Width 14.7 % (11.6-14.8)
[2023-01-28 13:26] LABS: INR 1.1 (0.9-1.3); Prothrombin Time 12.1 SECONDS (9.4-12.5)
[2023-01-28 13:28] LABS: PTT Partial Thromboplastin Tim 33 SECONDS (25.1-36.5)
[2023-01-28 13:31] LABS: Alanine Aminotransferase 23 IU/L (<35); Albumin 4.7 g/dL (3.5-5.0); Albumin Globulin Ratio 1.2 (1.0-2.8); Alkaline Phosphatase 94 U/L (38-126); Aspartate Aminotransferase 41 IU/L (14-36); BUN Creatinine Ratio 15.6 (6-22); Bilirubin Total 1.3 mg/dL (0.2-1.3); Blood Urea Nitrogen 14 mg/dL (7-17); Calcium 9.8 mg/dL (8.4-10.2); Carbon Dioxide 28 mmol/L (22-32); Chloride 103 mmol/L (98-107); Creatine Kinase 418 U/L (30-135); Estimated Glomerular Filt Rate > 60 mL/min (>60); Globulin 3.8 g/dL (1.7-4.1); Glucose 108 mg/dL (80-110); HEMOLYSIS < 15 (0-50); Lipase 106 U/L (23-300); Magnesium 2.2 mg/dL (1.6-2.3); Potassium 3.7 mmol/L (3.4-5.1); Sodium 137 mmol/L (137-145); Total Protein 8.5 g/dL (6.3-8.2)
--- NOTE | 2023-01-28 13:33 | PC.NURSE ---
pt is hypertensive. c/o that both of her eyes have been blurry and watery. states her left cheek is intermittently numb.
[2023-01-28 13:41] LABS: Troponin I < 0.012 ng/mL (0.01-0.034)
--- NOTE | 2023-01-28 14:28 | ED.GENADULT ---
HPI - General Adult General Chief complaint: Hypertension Stated complaint: BP was over 200/ eyes blurry Time Seen by Provider: 01/28/23 13:16 Source: patient Mode of arrival: Ambulatory Limitations: no limitations History of Present Illness HPI narrative: This is an 87-year-old female with history of hypertension no longer on medications. Patient states for the past 2 or 3 days she is had tingling of her left cheek and states that it has felt different like when she is had her teeth numbed with a dentist she also noticed some changing to her eye she describes it more as itchy scratchiness and some blurring no significant visual loss. No headache, denies numbness or tingling or other extremities. No chest pain or shortness of breath. No rash on the face no pain. Patient notes her dentures do not fit well but that has been going on for some time. She does note she is been off balance but states that that seems to be from when she hurt her hip she states her hip has been doing better. She did a lot of walking strained it and since been improving but continues to be off balance. Denies any vertigo. No nausea no vomiting, some mild constipation but having bowel movements. No dysuria urgency or frequency. She is not anticoagulated she is no longer on antihypertensives states she was on them because 3 family members within a month and she had very high blood pressure at that time. She has not had her blood pressure checked for several months and checked it today because she felt off and had the symptoms above and was noted to be 200. Patient states she is on no prescriptions currently besides vitamin-D. Prior history is includes . She describes a mild allergy to latex. No tobacco, alcohol or illicit. Her primary care is JOHN Yan. Related Data Home Medications Medication Instructions Recorded Confirmed cholecalciferol (vitamin D3) 25 1,000 unit PO QDAY ##0 12/24/16 07/24/20 mcg (1,000 unit) tablet (Vitamin D3) levothyroxine 100 mcg tablet 100 mcg PO QAM ##0 12/24/16 07/24/20 (Synthroid) Previous Rx's Medication Instructions Recorded losartan 100 mg tablet 100 mg PO DAILY #30 tabs 08/08/21 losartan 50 mg tablet 50 mg PO DAILY #30 tabs 01/28/23 Allergies Allergy/AdvReac Type Severity Reaction Status Date / Time latex AdvReac Mild Rash Verified 01/28/23 12:56 Review of Systems Review of Systems ROS Unobtainable: All systems reviewed & are unremarkable except as noted in HPI and below Patient History Medical History Hypothyroidism (acquired) Cataracts, bilateral Hypertension Social History household members: spouse Smoking Status: Former smoker alcohol intake: current Smoking Status: Former smoker tobacco type: cigarettes alcohol intake frequency: holidays/special occasions only Substance Use Type: does not use Exam Narrative Exam Narrative: GEN: well nourished, well appearing female, alert and oriented x 3, patient appears to be in mild distress. HEENT: Atraumatic, pupils are equal round reactive to light, extraocular movements are intact, nares are clear, there is no conjunctival pallor. Throat is clear without any exudates, erythema, tonsillar enlargement or uvular deviation, no rash, no erythema, no facial droop. HEART: Regular rate and rhythm without murmur, clicks, rubs. No carotid bruits, pulses are equal in upper and lower extremities LUNGS:Lungs clear to auscultation, no wheezes, rales, crackles, chest moves symmetrically ABD:bowel sounds normal, soft, non-tender, no guarding, rebound, rigidity, no masses noted, no hepatosplenomegaly :No CVA tenderness MSCL: Non-tender, no muscle atrophy, muscles strength 5/5 upper and lower extremities, full range of motion. NEURO:CN 2-12 intact, sensation normal, finger nose finger test normal, heel matthews test normal SKIN: No rash, erythema or other skin changes Initial Vital Signs Initial Vital Signs: Vital Signs Temperature 99.5 F 01/28/23 12:48 Pulse Rate 96 H 01/28/23 12:48 Respiratory Rate 18 01/28/23 12:48 Blood Pressure 212/105 H 01/28/23 12:48 Pulse Oximetry 97 01/28/23 12:48 Oxygen Delivery Method Room Air 01/28/23 12:48 Scores NIH Stroke Scale Level of Conciousness: Alert, keenly responsive Ask month/age: Answers both questions correctly. Open/close eyes, close hand: Performs both tasks correctly Best gaze horizontal: Normal Visual yan: No visual loss Facial palsy: Normal symetrical movement Left arm drift: No drift for full 10 sec Right arm drift: No drift for full 10 sec Left leg drift: No drift for full 5 sec Right leg drift: No drift for full 5 sec Limb ataxia: Absent Sensory on face/arms/legs: Normal, no sensory loss Best language: No aphasia, normal Dysarthria: Normal Extinction or inattention: No abnormality Total NIH Stroke scale score: 0 Course Orders Ordered: ED Orders 01/28/23 12:58 XR chest 1V Stat EKG-12 Lead Stat 01/28/23 12:59 CT head/brain wo con Stat 01/28/23 13:10 Complete Blood Count AUTO DIFF Stat Comprehensive Metabolic Panel Stat Lipase Stat Magnesium Stat PTT Partial Thromboplastin Lc Stat Prothrombin Time INR Stat Troponin & CK Cardiac Panel Stat 01/28/23 13:16 CT angio head and neck Stat 01/28/23 15:07 MR head/brain wo con Stat Discontinued Medications Losartan Potassium (Losartan 50 Mg Tablet) 50 mg PO NOW ONE Stop: 01/28/23 17:01 Last Admin: 01/28/23 17:09 Dose: 50 mg Documented By: SCARLETT Vital Signs Vital signs: Vital Signs - 8 hr 01/28/23 12:48 01/28/23 13:15 01/28/23 13:19 Temperature 99.5 F Pulse Rate 96 H 84 Respiratory Rate 18 16 Blood Pressure 212/105 H Pulse Oximetry 97 96 97 Oxygen Delivery Method Room Air Room Air 01/28/23 13:19 01/28/23 13:33 01/28/23 13:48 Temperature Pulse Rate 78 Respiratory Rate Blood Pressure 228/109 H 217/95 H Pulse Oximetry 96 Oxygen Delivery Method 01/28/23 13:48 01/28/23 14:00 01/28/23 14:00 Temperature Pulse Rate 75 73 Respiratory Rate 13 12 Blood Pressure 186/95 H Pulse Oximetry 97 98 Oxygen Delivery Method 01/28/23 14:30 01/28/23 14:30 01/28/23 15:00 Temperature Pulse Rate 70 82 Respiratory Rate 11 L 15 Blood Pressure 185/91 H Pulse Oximetry 96 96 Oxygen Delivery Method 01/28/23 15:24 01/28/23 15:24 01/28/23 15:30 Temperature Pulse Rate 84 83 Respiratory Rate 20 18 Blood Pressure 212/103 H Pulse Oximetry 96 96 Oxygen Delivery Method 01/28/23 15:45 01/28/23 15:45 01/28/23 16:00 Temperature Pulse Rate 80 74 Respiratory Rate 16 17 Blood Pressure 205/94 H Pulse Oximetry 96 97 Oxygen Delivery Method 01/28/23 16:00 01/28/23 16:36 01/28/23 16:38 Temperature Pulse Rate 77 71 Respiratory Rate Blood Pressure 191/93 H Pulse Oximetry 98 98 Oxygen Delivery Method 01/28/23 16:38 01/28/23 16:53 01/28/23 16:53 Temperature Pulse Rate 72 Respiratory Rate 17 Blood Pressure 212/95 H 182/92 H Pulse Oximetry 97 Oxygen Delivery Method 01/28/23 17:00 01/28/23 17:00 01/28/23 17:09 Temperature Pulse Rate 83 90 Respiratory Rate 18 Blood Pressure 180/96 H 180/96 H Pulse Oximetry 98 Oxygen Delivery Method Medical Decision Making Lab Data 01/28/23 13:10 01/28/23 13:10 Labs: Lab Results 01/28/23 Range/Units 13:10 WBC 5.0 (4.5-11.0) X10^3/uL RBC 4.97 (4.0-5.2) X10^6/uL Hgb 14.0 (12.0-16.0) g/dL Hct 41.5 (36-46) % MCV 83.5 (80-100) fL MCH 28.2 (26-34) PG MCHC 33.8 (30-36) % RDW 14.7 (11.6-14.8) % Plt Count 147 L (150-400) X10^3/uL Neut % (Auto) 74.8 (50-75) % Lymph % (Auto) 18.8 L (25-40) % [place] % (Auto) 3.9 (3-14) % Eos % (Auto) 1.7 L (2-4) % Baso % (Auto) 0.8 (0-2) % Neut # (Auto) 3800 (9225-7461) /uL Lymph # (Auto) 900 L (1687-7898) /uL [place] # (Auto) 200 (0-900) /uL Eos # (Auto) 100 (0-450) /uL Baso # (Auto) 0 (0-100) /uL PT 12.1 (9.4-12.5) SECONDS INR 1.1 (0.9-1.3) APTT 33 (25.1-36.5) SECONDS Sodium 137 (137-145) mmol/L Potassium 3.7 (3.4-5.1) mmol/L Chloride 103 (98-107) mmol/L Carbon Dioxide 28 (22-32) mmol/L BUN 14 (7-17) mg/dL Creatinine 0.90 (0.52-1.04) mg/dL Estimated GFR > 60 (>60) mL/min BUN/Creatinine Ratio 15.6 (6-22) Glucose 108 (80-110) mg/dL Calcium 9.8 (8.4-10.2) mg/dL Magnesium 2.2 (1.6-2.3) mg/dL Total Bilirubin 1.3 (0.2-1.3) mg/dL AST 41 H (14-36) IU/L ALT 23 (<35) IU/L Alkaline Phosphatase 94 (38-126) U/L Total Creatine Kinase 418 H (30-135) U/L Troponin I < 0.012 (0.01-0.034) ng/mL Total Protein 8.5 H (6.3-8.2) g/dL Albumin 4.7 (3.5-5.0) g/dL Globulin 3.8 (1.7-4.1) g/dL Albumin/Globulin Ratio 1.2 (1.0-2.8) Lipase 106 (23-300) U/L Imaging Data CT scan - head: Radiologist's Impression: Mirtha Choi??87??F??1935 ? Allergy/Adv: latex Close Head/Neck CTA (Signed) Clementina Fernandez - 01/28/[address] (Signed) Nam Moe - 01/28/23 Chest X-Ray (Signed) Nam Moe - 01/28/23 Chest X-Ray (Signed) Danya Freeman - 08/08/21 Launch?[address] [address] [address] Scan Report Signed Patient: Mirtha Choi MR#: [id number] : 1935 Acct:[id number] Age/Sex: 87 / F Date of Service: 01/28/23 Loc: ED Accession Number: [id number] Procedure: CT head/brain wo con Ordering Provider: Marisela Harris D.O. PROCEDURE: CT HEAD/BRAIN WO CON INDICATIONS: htn/blurry vision TECHNIQUE: Noncontrast 4.5 mm thick angled axial sections acquired from the foramen magnum to the vertex, with coronal and sagittal reformats. For radiation dose reduction, the following was used: automated exposure control, adjustment of mA and/or kV according to patient size. COMPARISON: None. FINDINGS: Image quality: Excellent. CSF spaces: Basal cisterns are patent. No extra-axial fluid collections. The ventricles are symmetric in size and shape. Brain: No intracranial bleeds or masses. There is cerebral volume loss for age, with resultant ventricular and sulcal prominence. There are periventricular and deep white matter chronic small vessel ischemic changes. There is intracranial internal carotid artery atherosclerosis. Skull and face: Calvarium and visualized facial bones appear intact, without suspicious lesions. Sinuses: Visualized sinuses and mastoids are clear. IMPRESSION: No acute intracranial pathology. Dictated by: Nam Moe M.D. on 01/28/2023 at 13:41 Approved by: Nam Moe M.D. on 01/28/2023 at 13:42 CTA - brain/neck: Radiologist's Impression: Close Head/Neck CTA (Signed) Clementina Fernandez - 01/28/[address] (Signed) Nam Moe - 01/28/23 Chest X-Ray (Signed) Nam Moe - 01/28/23 Chest X-Ray (Signed) Danya Freeman - 08/08/21 [place] [address] CT Scan Report Signed Patient: Mirtha Choi MR#: [id number] : 1935 Acct:[id number] Age/Sex: 87 / F Date of Service: 01/28/23 Loc: ED Accession Number: [id number] Procedure: CT angio head and neck Ordering Provider: Marisela Harris D.O. PROCEDURE: CT ANGIO HEAD AND NECK INDICATIONS: htn TECHNIQUE: After the administration of intravenous contrast, 1 mm thick sections acquired from the aortic arch through the [place] of [place]. 3-dimensional dvezcni-bwbsyowtk-weuguscsll (MIP) and/or volume rendering reformats were acquired of the central intracranial vasculature and neck separately. For radiation dose reduction, the following was used: automated exposure control, adjustment of mA and/or kV according to patient size. COMPARISON: None. FINDINGS: Image quality: Diagnostic. BRAIN: CSF spaces: Ventricles are normal in size and shape. Basal cisterns are patent. No extra-axial fluid collections. Brain: No significant abnormality of the brain can be seen. Skull and face: Calvarium and facial bones appear intact, without suspicious lesions. Orbits appear normal. Sinuses: Sinuses and mastoids are clear. HEAD CT ANGIOGRAPHY: Anterior circulation: Intracranial internal carotid arteries are normal in size and flow. Atheromatous calcifications are noted within the cavernous portion of the bilateral internal carotid arteries with mild resultant stenosis. The flow within the paired anterior cerebral arteries is normal and symmetric. The flow within the middle cerebral arteries is normal and symmetric. The anterior communicating artery is seen. No aneurysms are seen. Posterior circulation: Visualized portions of the vertebral arteries demonstrate normal caliber, and join to form a normal appearing basilar artery. Flow within the posterior cerebral arteries is normal and symmetric. No aneurysms are seen. NECK CT ANGIOGRAPHY: Carotid system: Scattered atheromatous calcifications are present within the aortic arch. The great vessels demonstrate a conventional anatomy as they arise from the aortic arch. The origins of the common carotid arteries appear patent. The common carotid arteries demonstrate normal caliber and courses. The bifurcation regions are both widely patent. The internal carotid arteries demonstrate normal calibers and courses. Posterior circulation: The origins of the vertebral arteries both appear widely patent. The more superior extracranial portions of both vertebral arteries also demonstrate normal courses and calibers. They join to form a normal appearing basilar artery. Soft tissues: Visualized neck soft tissues demonstrate no suspicious abnormalities. Bones: No suspicious bony lesions. Visualized cervical spine appears normally aligned. IMPRESSION: 1. 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 2. No other stenosis, occlusion, or aneurysm. Any quantitative measurements of stenosis were performed using NASCET criteria. Dictated by: Clementina Fernandez M.D. on 01/28/2023 at 13:36 Approved by: Clementina Fernandez M.D. on 01/28/2023 at 13:40 Chest x-ray: Radiologist's Impression: [address] [address] XRay Report Signed Patient: Mirtha Choi MR#: [id number] : 1935 Acct:[id number] Age/Sex: 87 / F Date of Service: 01/28/23 Loc: ED Accession Number: [id number] Procedure: XR chest 1V Ordering Provider: Marisela Harris D.O. PROCEDURE: XR CHEST 1V INDICATIONS: chest pain TECHNIQUE: One view of the chest was acquired. COMPARISON: [facility], , XR CHEST 1V, 08/08/2021, 4:34. FINDINGS: Surgical changes and devices: None. Lungs and pleura: Lungs are clear. No pleural effusions or pneumothorax. Mediastinum: Mediastinal contours appear normal. Cardiomegaly. Bones and chest wall: No suspicious bony lesions. Overlying soft tissues appear unremarkable. IMPRESSION: Cardiomegaly. No evidence acute pulmonary process. Dictated by: Nam Moe M.D. on 01/28/2023 at 13:43 Approved by: Nam Moe M.D. on 01/28/2023 at 13:44 mr brain: Radiologist's Impression: Close Brain MRI (Signed) Ion Macedo - 01/28/23 Head/Neck CTA (Signed) Clementina Fernandez - 01/28/[address] (Signed) Nam Moe - 01/28/23 Chest X-Ray (Signed) Nam Moe - 01/28/23 Launch?Image [address] [address] Magnetic Resonance Report Signed Patient: Mirtha Choi MR#: [id number] : 1935 Acct:[id number] Age/Sex: 87 / F Date of Service: 01/28/23 Loc: ED Accession Number: [id number] Procedure: MR head/brain wo con Ordering Provider: Marisela Harris D.O. PROCEDURE: MR HEAD/BRAIN WO CON INDICATIONS: Please evaluate for cva, facial numbness. vision blurry, off balance TECHNIQUE: Non-contrast axial T1 spin echo, axial T2 fast spin echo, sagittal and axial FLAIR, coronal T2 fast spin echo, axial gradient echo, axial diffusion and ADC through the brain. COMPARISON: [facility], CT, CT HEAD/BRAIN WO CON, 01/28/2023, 13:22. [facility], CT, CT ANGIO HEAD AND NECK, 01/28/2023, 13:22. FINDINGS: Image quality: Diagnostic. CSF spaces: Ventricles appear symmetric in size and shape. Basal cisterns are patent. No extra-axial fluid collections. Brain: No intracranial bleeds or mass effects. There is cerebral volume loss for age. There are periventricular and deep white matter chronic small vessel ischemic changes. Brainstem appears normal. Diffusion-weighted images show no acute ischemic insults. No chronic ischemic insults. Normal intravascular flow voids are present. Skull and face: Calvarial bone marrow is normal in signal. Orbits are normal. Note is made of bilateral lens replacements. Sinuses: Sinuses and mastoids are clear. IMPRESSION: No findings of acute or subacute infarction can be seen. Note is made of age-appropriate brain parenchymal volume loss and chronic small vessel ischemic changes. Dictated by: Ion Macedo M.D. on 01/28/2023 at 15:37 Approved by: Ion Macedo M.D. on 01/28/2023 at 15:39 ECG Data Attestation: I personally reviewed and interpreted this ECG as follows: Prior ECG tracings: available for review Interpretation: Sinus rhythm rate 85 HI 132 QRS is 78 QTC [address]. No acute ST elevation nonspecific change patient does appear to have sinus rhythm. Nonspecific change. MDM Narrative Medical decision making narrative: This is an 87 year old female history of hypertension/grief response who has been untreated in the past year. No anticoagulants who describes some tingling right cheek for 2 or 3 days persistently with some sensation change and some tearing and blurring of her vision. Patient does note she is been a little bit off balance but relates this to her hip being strained after walking extensive difference. She denies any other acute neurologic changes. Her NIH is 0 here today. She does not appreciate sensation change with light touch. Head CT CT angio shows some mild stenosis bilateral carotids but no other acute change or occlusion. Non-con head CT, chest x-ray are negative, CBC shows platelets 147 INR is 1.1 CMP is negative AST 41 ALT 23 CK 418, trope is negative. Lipase is negative. Patient was quite hypertensive on arrival with improving to 180s after discussion and evaluation by myself she became quite upset as she noted her blood pressure was high when she lost 3 family members in a single month 1 being her sister who was very strong support. Her blood pressure immediately went back up after this to the 200 range. 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 Discussed with patient no other significant changes but does have persistent tingling of her face no obvious changes such as Matute's palsy, herpes zoster or trigeminal neuralgia or other causes. Patient's open to MR testing to evaluate for stroke she did come in quite hypertensive. She is not currently on any treatment for blood pressure. Patient is agreeable. MR brain shows no acute change. Patient's blood pressures improved she still 180 systolic after discussion do want to normalize her blood pressure immediately but would probably benefit from long-term treatment. She has not been having it checked regularly so we will restart her on her home dose of medication. Script sent to her pharmacy but asked to follow-up as well. Discharge Plan Departure Patient Disposition: Home Clinical Impression: Hypertension, Facial paresthesia Activity Restrictions/Additional Instructions: Follow-up with your physician for recheck. I hope you have a very pleasant holiday. Your workup including MRI did not show any signs of stroke today. She had some mild narrowing of your carotids on your CT angio. Your lab work otherwise showed platelets at 147 but otherwise appropriate labs. I would recommend restarting your blood pressure medication. Prescription was sent to the [facility] pharmacy. Please return for severe headaches new numbness, tingling or weakness, new facial droop, severe headaches, sudden vision changes, chest pain or shortness of breath, persistent vomiting, new swelling in her extremities or difficulty weakness in your extremities. Prescriptions: New losartan 50 mg tablet 50 mg PO DAILY Qty: 30 0RF No Action levothyroxine [Synthroid] 100 MCG tablet 100 mcg PO QAM Qty: 0 cholecalciferol (vitamin D3) [Vitamin D3] 1,000 UNIT tablet 1,000 unit PO QDAY Qty: 0 losartan 100 mg tablet 100 mg PO DAILY Qty: 30 0RF Referrals: Sudha Yan PA-C [Primary Care Provider] - Stand Alone Forms: Patient Portal/API
--- NOTE | 2023-01-28 15:07 | DI.MRI.S_ITS ---
PROCEDURE: MR HEAD/BRAIN WO CON INDICATIONS: Please evaluate for cva, facial numbness. vision blurry, off balance TECHNIQUE: Non-contrast axial T1 spin echo, axial T2 fast spin echo, sagittal and axial FLAIR, coronal T2 fast spin echo, axial gradient echo, axial diffusion and ADC through the brain. COMPARISON: [facility], CT, CT HEAD/BRAIN WO CON, 01/28/2023, 13:22. [facility], CT, CT ANGIO HEAD AND NECK, 01/28/2023, 13:22. FINDINGS: Image quality: Diagnostic. CSF spaces: Ventricles appear symmetric in size and shape. Basal cisterns are patent. No extra-axial fluid collections. Brain: No intracranial bleeds or mass effects. There is cerebral volume loss for age. There are periventricular and deep white matter chronic small vessel ischemic changes. Brainstem appears normal. Diffusion-weighted images show no acute ischemic insults. No chronic ischemic insults. Normal intravascular flow voids are present. Skull and face: Calvarial bone marrow is normal in signal. Orbits are normal. Note is made of bilateral lens replacements. Sinuses: Sinuses and mastoids are clear. IMPRESSION: No findings of acute or subacute infarction can be seen. Note is made of age-appropriate brain parenchymal volume loss and chronic small vessel ischemic changes. Dictated by: Ion Macedo M.D. on 01/28/2023 at 15:37 Approved by: Ion Macedo M.D. on 01/28/2023 at 15:39
[2023-01-28] MEDS: LOSARTAN 50 MG TABLET PO (17:09)
== END 2023-01-28 17:25 | disposition home or self-care (01) ==
PROVIDERS: Emergency Provider Emergency Medicine; PCP Physician Assistant
DX: I10 Essential (primary) hypertension (principal); R20.2 Paresthesia of skin; E03.9 Hypothyroidism, unspecified; Z79.890 Hormone replacement therapy; Z91.128 Patient's intentional underdosing of medication regimen for other reason
CPT/HCPCS: 36415; 70450; 70496; 70498; 70551; 71045; 80053; 82550; 83690; 83735; 84484; 85025; 85610; 85730; 93005; 93010; 99284; Q9967

== ENCOUNTER 2023-03-08 11:54 | Emergency (ER) | payer MEDICARE, OTHER, SELFPAY ==
[2023-03-08] VITALS (17 sets, daily range): BP systolic 159–230; BP diastolic 74–103; PULSE 77–123; RESP 10–23; TEMP 36.6; O2SAT 92–99; BMI 27.3
--- NOTE | 2023-03-08 12:11 | DI.RAD.S_ITS ---
PROCEDURE: XR CHEST 1V INDICATIONS: chest pain TECHNIQUE: One view of the chest was acquired. COMPARISON: [facility], CR, XR CHEST 1V, 01/28/2023, 13:29. [facility], CR, XR CHEST 1V, 08/08/2021, 4:34. FINDINGS: Surgical changes and devices: None. Lungs and pleura: Mild linear opacities at the lung bases. No dense consolidation. No drainable pleural effusion. Mediastinum: Borderline cardiomegaly. Bones and chest wall: Degenerative changes. IMPRESSION: Mild linear opacities at the lung bases likely representing atelectasis and mucous plugging/aspiration. Consider future imaging surveillance to assess for resolution. Limited single view chest radiograph Dictated by: Skyler Darden M.D. on 03/08/2023 at 12:57 Approved by: Skyler Darden M.D. on 03/08/2023 at 12:57
[2023-03-08 12:31] LABS: INR 1.1 (0.9-1.3); Prothrombin Time 12.6 SECONDS (9.4-12.5)
[2023-03-08 12:32] LABS: Add Manual Diff / Slide Review NO; Basophils Absolute Auto 0 /uL (0-100); Basophils Percent Auto 0.8 % (0-2); Eosinophils Absolute Auto 0 /uL (0-450); Eosinophils Percent Auto 0.8 % (2-4); Hematocrit 39.7 % (36-46); Hemoglobin 13.4 g/dL (12.0-16.0); Lymphocytes Absolute Auto 800 /uL (1100-4500); Lymphocytes Percent Auto 15.6 % (25-40); Mean Corpuscular HGB Conc 33.9 % (30-36); Mean Corpuscular Hemoglobin 28.9 PG (26-34); Mean Corpuscular Volume 85.2 fL (80-100); Monocytes Absolute Auto 200 /uL (0-900); Monocytes Percent Auto 4.3 % (3-14); Neutrophils Absolute Auto 4100 /uL (1500-7000); Neutrophils Percent Auto 78.5 % (50-75); Platelet Count 170 X10^3/uL (150-400); Red Blood Cell Count 4.66 X10^6/uL (4.0-5.2); Red Cell Distribution Width 16.1 % (11.6-14.8); White Blood Cell Count 5.2 X10^3/uL (4.5-11.0)
[2023-03-08 12:34] LABS: PTT Partial Thromboplastin Tim 32 SECONDS (25.1-36.5)
[2023-03-08 12:36] LABS: Alanine Aminotransferase 35 IU/L (<35); Albumin 4.7 g/dL (3.5-5.0); Albumin Globulin Ratio 1.2 (1.0-2.8); Alkaline Phosphatase 91 U/L (38-126); Aspartate Aminotransferase 67 IU/L (14-36); BUN Creatinine Ratio 11.4 (6-22); Bilirubin Total 1.4 mg/dL (0.2-1.3); Blood Urea Nitrogen 14 mg/dL (7-17); Carbon Dioxide 26 mmol/L (22-32); Chloride 102 mmol/L (98-107); Creatine Kinase 778 U/L (30-135); Estimated Glomerular Filt Rate 43 mL/min (>60); Globulin 3.9 g/dL (1.7-4.1); Glucose 136 mg/dL (80-110); HEMOLYSIS < 15 (0-50); Lipase 108 U/L (23-300); Magnesium 2.3 mg/dL (1.6-2.3); Potassium 4.1 mmol/L (3.4-5.1); Sodium 137 mmol/L (137-145); Total Protein 8.6 g/dL (6.3-8.2)
--- NOTE | 2023-03-08 12:44 | DI.CT.S_ITS ---
PROCEDURE: CT HEAD/BRAIN WO CON INDICATIONS: slurred speech, htn. TECHNIQUE: Noncontrast 4.5 mm thick angled axial sections acquired from the foramen magnum to the vertex, with coronal and sagittal reformats. For radiation dose reduction, the following was used: automated exposure control, adjustment of mA and/or kV according to patient size. COMPARISON: [facility], MR, MR HEAD/BRAIN WO CON, 01/28/2023, 16:09. [facility], CT, CT HEAD/BRAIN WO CON, 01/28/2023, 13:22. FINDINGS: Image quality: Diagnostic CSF spaces: Basal cisterns are patent. Lateral ventricles are symmetric. Volume: Vascular calcifications. Periventricular white matter disease is commonly seen with chronic microangiopathy. Volume loss is present. These findings are [id number] Brain: No acute intracranial hemorrhage. No large territory loss of you-white differentiation. Craniofacial structures: Paranasal sinuses are clear where visualized. No displaced fracture. IMPRESSION: No acute intracranial abnormality. If there is high concern for parenchymal pathology, consider further evaluation with MRI. Dictated by: Skyler Darden M.D. on 03/08/2023 at 13:14 Approved by: Skyler Darden M.D. on 03/08/2023 at 13:16
[2023-03-08 12:47] LABS: Troponin I < 0.012 ng/mL (0.01-0.034)
--- NOTE | 2023-03-08 12:49 | ED.NEUROSD ---
HPI - Neuro Symptoms/Deficit General Chief Complaint: Neuro Symptoms/Deficit Stated Complaint: blurr vision, speech difficulty, high bp Time Seen by Provider: 03/08/23 12:36 Mode of arrival: Family Vehicle History of Present Illness HPI Narrative: Patient brought in by from home for complaints slurred speech blurry vision for the past 1 week. Patient blood pressure noted. It has improved on its own. Patient seen here January 28, 2023 for high blood pressure and facial paresthesia. Losartan was restarted as patient was off her blood pressure medication for unknown amount of time. She has not had any changes done by her primary care. Is not anticoagulated. Patient had extensive workup during course of stay in the emergency department when she was discharged from the emergency department January 28, 2023. Had CT head CT angiogram head and neck MRI of the brain. Blood pressure was controlled and discharged home. Denies any headache. No chest pain. On Anticoagulants: No Related Data Home Medications Medication Instructions Recorded Confirmed cholecalciferol (vitamin D3) 25 1,000 unit PO QDAY ##0 12/24/16 07/24/20 mcg (1,000 unit) tablet (Vitamin D3) levothyroxine 100 mcg tablet 100 mcg PO QAM ##0 12/24/16 07/24/20 (Synthroid) Previous Rx's Medication Instructions Recorded losartan 100 mg tablet 100 mg PO DAILY #30 tabs 08/08/21 losartan 50 mg tablet 50 mg PO DAILY #30 tabs 01/28/23 amlodipine 10 mg tablet (Norvasc) 10 mg PO DAILY #30 tabs 03/08/23 Allergies Allergy/AdvReac Type Severity Reaction Status Date / Time latex AdvReac Mild Rash Verified 03/08/23 12:10 Review of Systems Review of Systems Narrative: GENERAL: negative chills, fatigue, malaise, fever, sweats. HEENT: negative sinus pain, ear pain, sore throat RESPIRATORY: negative dyspnea, cough CARDIOVASCULAR: negative chest pain, palpitations GASTROINTESTINAL: negative nausea, vomiting, abdominal pain : negative dysuria, frequency, hematuria MUSCULOSKELETAL: negative muscle or bony pain SKIN: negative rash, skin lesions NEUROLOGIC: negative weakness, numbness, positive slurred speech positive vision changes ROS Unobtainable: All systems reviewed & are unremarkable except as noted in HPI and below Hematologic/Lymphatic On Anticoagulants: No Patient History Medical History Hypothyroidism (acquired) Cataracts, bilateral Hypertension Social History household members: spouse Smoking Status: Former smoker alcohol intake: current Smoking Status: Former smoker tobacco type: cigarettes alcohol intake frequency: holidays/special occasions only Substance Use Type: does not use Exam Narrative Exam Narrative: GENERAL: in no distress, not toxic not dyspneic HEAD: Normocephalic. EYES: Pupils equal round ENT: Mucous membranes moist. NECK: Trachea midline. CARDIOVASCULAR: Regular rate and rhythm RESPIRATORY: Clear to auscultation. Breath sounds equal bilaterally. No wheezes, rales, or rhonchi. GASTROINTESTINAL: Abdomen soft, non-tender EXTREMITIES: No gross deformities. BACK: No flank tenderness. NEURO: AOx4. Clear speech no facial droop light touch intact bilateral face hands and legs. Strong equal commercial photographer. Negative pronator drift. Fast exam is negative SKIN: Warm and dry PSYCH: Not anxious, is cooperative Initial Vital Signs Initial Vital Signs: Vital Signs Pulse Rate 98 H 03/08/23 12:05 Blood Pressure 218/103 H 03/08/23 12:05 Pulse Oximetry 97 03/08/23 12:05 Oxygen Delivery Method Room Air 03/08/23 12:05 Scores NIH Stroke Scale Level of Conciousness: Alert, keenly responsive Ask month/age: Answers both questions correctly. Open/close eyes, close hand: Performs both tasks correctly Best gaze horizontal: Normal Visual yan: No visual loss Facial palsy: Normal symetrical movement Left arm drift: No drift for full 10 sec Right arm drift: No drift for full 10 sec Left leg drift: No drift for full 5 sec Right leg drift: No drift for full 5 sec Limb ataxia: Absent Sensory on face/arms/legs: Normal, no sensory loss Best language: No aphasia, normal Dysarthria: Normal Extinction or inattention: No abnormality Total NIH Stroke scale score: 0 Course Orders Ordered: Discontinued Medications Amlodipine Besylate (Amlodipine 5 Mg Tablet) 10 mg PO NOW ONE Stop: 03/08/23 14:15 Last Admin: 03/08/23 15:06 Dose: 10 mg Documented By: KIRILL Aspirin (Aspirin 81 Mg Chew Tab) 324 mg PO NOW ONE Stop: 03/08/23 12:11 Last Admin: 03/08/23 12:57 Dose: 324 mg Documented By: BREE Lorazepam (Lorazepam 2 Mg/Ml Inj) 0.5 mg IV NOW ONE Stop: 03/08/23 13:58 Last Admin: 03/08/23 14:05 Dose: Not Given Documented By: KIRILL Vital Signs Vital signs: Vital Signs - 8 hr 03/08/23 12:05 03/08/23 12:05 03/08/23 12:07 Temperature 97.8 F Pulse Rate 98 H 105 H Respiratory Rate 22 Blood Pressure 218/103 H 218/103 H Pulse Oximetry 97 97 Oxygen Delivery Method Room Air Room Air 03/08/23 12:28 03/08/23 12:28 03/08/23 12:30 Temperature Pulse Rate 84 Respiratory Rate 14 Blood Pressure 189/89 H 172/85 H Pulse Oximetry 93 Oxygen Delivery Method 03/08/23 12:30 03/08/23 13:01 03/08/23 13:15 Temperature Pulse Rate 83 84 86 Respiratory Rate 11 L 15 Blood Pressure Pulse Oximetry 93 92 93 Oxygen Delivery Method Room Air 03/08/23 13:30 03/08/23 13:45 03/08/23 14:00 Temperature Pulse Rate 80 86 79 Respiratory Rate 14 15 14 Blood Pressure Pulse Oximetry 92 94 94 Oxygen Delivery Method Room Air 03/08/23 15:03 03/08/23 15:04 03/08/23 15:04 Temperature Pulse Rate 98 H 87 Respiratory Rate Blood Pressure 230/102 H Pulse Oximetry 98 97 Oxygen Delivery Method 03/08/23 15:30 03/08/23 15:45 03/08/23 15:49 Temperature Pulse Rate 77 80 79 Respiratory Rate 13 12 14 Blood Pressure Pulse Oximetry 96 95 96 Oxygen Delivery Method 03/08/23 15:49 03/08/23 16:00 03/08/23 16:00 Temperature Pulse Rate 78 Respiratory Rate 10 L Blood Pressure 184/88 H 165/77 H Pulse Oximetry 99 Oxygen Delivery Method 03/08/23 16:15 03/08/23 16:30 03/08/23 16:30 Temperature Pulse Rate 123 H 81 Respiratory Rate 23 14 Blood Pressure 159/74 H Pulse Oximetry 96 95 Oxygen Delivery Method Room Air MDM - Neuro Symptoms/Deficit Lab Data 03/08/23 12:10 03/08/23 12:10 Labs: Lab Results 03/08/23 Range/Units 12:10 WBC 5.2 (4.5-11.0) X10^3/uL RBC 4.66 (4.0-5.2) X10^6/uL Hgb 13.4 (12.0-16.0) g/dL Hct 39.7 (36-46) % MCV 85.2 (80-100) fL MCH 28.9 (26-34) PG MCHC 33.9 (30-36) % RDW 16.1 H (11.6-14.8) % Plt Count 170 (150-400) X10^3/uL Neut % (Auto) 78.5 H (50-75) % Lymph % (Auto) 15.6 L (25-40) % [place] % (Auto) 4.3 (3-14) % Eos % (Auto) 0.8 L (2-4) % Baso % (Auto) 0.8 (0-2) % Neut # (Auto) 4100 (6561-7434) /uL Lymph # (Auto) 800 L (9175-9562) /uL [place] # (Auto) 200 (0-900) /uL Eos # (Auto) 0 (0-450) /uL Baso # (Auto) 0 (0-100) /uL PT 12.6 H (9.4-12.5) SECONDS INR 1.1 (0.9-1.3) APTT 32 (25.1-36.5) SECONDS Sodium 137 (137-145) mmol/L Potassium 4.1 (3.4-5.1) mmol/L Chloride 102 (98-107) mmol/L Carbon Dioxide 26 (22-32) mmol/L BUN 14 (7-17) mg/dL Creatinine 1.23 H (0.52-1.04) mg/dL Estimated GFR 43 L (>60) mL/min BUN/Creatinine Ratio 11.4 (6-22) Glucose 136 H (80-110) mg/dL Calcium 10.0 (8.4-10.2) mg/dL Magnesium 2.3 (1.6-2.3) mg/dL Total Bilirubin 1.4 H (0.2-1.3) mg/dL AST 67 H (14-36) IU/L ALT 35 H (<35) IU/L Alkaline Phosphatase 91 (38-126) U/L Total Creatine Kinase 778 H (30-135) U/L Troponin I < 0.012 (0.01-0.034) ng/mL Total Protein 8.6 H (6.3-8.2) g/dL Albumin 4.7 (3.5-5.0) g/dL Globulin 3.9 (1.7-4.1) g/dL Albumin/Globulin Ratio 1.2 (1.0-2.8) Lipase 108 (23-300) U/L Imaging Data CT scan - head: Radiologist's Impression: [address] [address] [address] Scan Report Signed Patient: Mirtha Choi MR#: [id number] : 1935 Acct:[id number] Age/Sex: 87 / F Date of Service: 03/08/23 Loc: ED Accession Number: [id number] Procedure: CT head/brain wo con Ordering Provider: Constantino Sawyer MD PROCEDURE: CT HEAD/BRAIN WO CON INDICATIONS: slurred speech, htn. TECHNIQUE: Noncontrast 4.5 mm thick angled axial sections acquired from the foramen magnum to the vertex, with coronal and sagittal reformats. For radiation dose reduction, the following was used: automated exposure control, adjustment of mA and/or kV according to patient size. COMPARISON: [facility], MR, MR HEAD/BRAIN WO CON, 01/28/2023, 16:09. [facility], CT, CT HEAD/BRAIN WO CON, 01/28/2023, 13:22. FINDINGS: Image quality: Diagnostic CSF spaces: Basal cisterns are patent. Lateral ventricles are symmetric. Volume: Vascular calcifications. Periventricular white matter disease is commonly seen with chronic microangiopathy. Volume loss is present. These findings are [id number]-[id number] Brain: No acute intracranial hemorrhage. No large territory loss of green-white differentiation. Craniofacial structures: Paranasal sinuses are clear where visualized. No displaced fracture. IMPRESSION: No acute intracranial abnormality. If there is high concern for parenchymal pathology, consider further evaluation with MRI. Dictated by: Skyler Darden M.D. on 03/08/2023 at 13:14 Approved by: Skyler Darden M.D. on 03/08/2023 at 13:16 Chest x-ray: Radiologist's Impression: [address] [address] XRay Report Signed Patient: Mirtha Choi MR#: [id number] : 1935 Acct:[id number] Age/Sex: 87 / F Date of Service: 03/08/23 Loc: ED Accession Number: [id number] Procedure: XR chest 1V Ordering Provider: Constantino Sawyer MD PROCEDURE: XR CHEST 1V INDICATIONS: chest pain TECHNIQUE: One view of the chest was acquired. COMPARISON: [facility], CR, XR CHEST 1V, 01/28/2023, 13:29. [facility], CR, XR CHEST 1V, 08/08/2021, 4:34. FINDINGS: Surgical changes and devices: None. Lungs and pleura: Mild linear opacities at the lung bases. No dense consolidation. No drainable pleural effusion. Mediastinum: Borderline cardiomegaly. Bones and chest wall: Degenerative changes. IMPRESSION: Mild linear opacities at the lung bases likely representing atelectasis and mucous plugging/aspiration. Consider future imaging surveillance to assess for resolution. Limited single view chest radiograph Dictated by: Skyler Darden M.D. on 03/08/2023 at 12:57 Approved by: Skyler Darden M.D. on 03/08/2023 at 12:57 MRI brain: Radiologist's Impression: [address] [address] Magnetic Resonance Report Signed Patient: Mirtha Choi MR#: [id number] : 1935 Acct:[id number] Age/Sex: 87 / F Date of Service: 03/08/23 Loc: ED Accession Number: [id number] Procedure: MR head/brain wo con Ordering Provider: Constantino Sawyer MD PROCEDURE: MR HEAD/BRAIN WO CON INDICATIONS: Slurred speech TECHNIQUE: Noncontrast axial T1 spin echo, axial T2 fast spin echo, sagittal and axial FLAIR, coronal T2 fast spin echo, axial gradient echo, axial diffusion and ADC through the brain. COMPARISON: [facility], , MR HEAD/BRAIN WO CON, 01/28/2023, 16:09. FINDINGS: Image quality: Diagnostic CSF spaces: Basal cisterns are patent. Lateral ventricles are symmetric. Volume: Volume loss. Periventricular white matter signal abnormality most commonly seen with small vessel disease. These findings are [id number] Brain: No intracranial hemorrhage. Green-white differentiation is grossly maintained. Craniofacial structures: No displaced fracture. Left mastoid effusion. IMPRESSION: No acute hematoma or infarction. Small left mastoid effusion. Dictated by: Skyler Darden M.D. on 03/08/2023 at 15:33 Approved by: Skyler Darden M.D. on 03/08/2023 at 15:36 [facility] Narrative Medical decision making narrative: Patient brought in by from home for complaints slurred speech blurry vision for the past 1 week. Patient blood pressure noted. It has improved on its own. Patient seen here January 28, 2023 for high blood pressure and facial paresthesia. Losartan was restarted as patient was off her blood pressure medication for unknown amount of time. She has not had any changes done by her primary care. Is not anticoagulated. Patient had extensive workup during course of stay in the emergency department when she was discharged from the emergency department January 28, 2023. Had CT head CT angiogram head and neck MRI of the brain. Blood pressure was controlled and discharged home. Denies any headache. No chest pain. After history and exam CT head chest x-ray EKG CBC CMP troponin BNP [facility] CC: Slurred speech vision change Complicating co-morbidities: History of hypertension Data collected from: Patient and Medical records reviewed: January 28, 2023 ER notes here Differential considered: Includes but not limited to TIA stroke, hypertensive urgency hypertensive emergency UTI Exam documented above, pertinent findings include: Fast exam is negative. Blood pressure has improved since arrival Lab Test results independently reviewed as above. Pertinent findings: WBC 5.2 hemoglobin 13.4 Sodium 137 potassium 4.1 Troponin less than 0.012 Independently reviewed EKG normal sinus rhythm rate [address] elevation or depression Imaging studies independently reviewed: CT head no acute finding chest x-ray no acute finding MRI brain no acute finding Consultations: 2:[address] Perry, hospitalist, recommends Norvasc 10 mg for blood pressure control Treatments: Norvasc Re-evaluations: Blood pressure 159/74. Patient's symptoms have resolved with blood pressure control. She has no symptoms at this time. Reviewed results with her . They desire discharge home. Her symptoms likely related to her high blood pressure. It resolved with improvement. Norvasc was given. This will be added to her regimen. Return precautions reviewed with her. Nontoxic at discharge. They desire discharge home Discussion: Appropriate for discharge home. Exam and laboratory studies and imaging are reassuring. No repeat angiogram as this was just done last month. Symptoms resolved with blood pressure control. Return precautions reviewed with patient. Asymptomatic at time of discharge. MRI laboratory studies imaging are reassuring. They desire discharge home Diagnosis: Hypertensive urgency Discharge Plan Departure Patient Disposition: Home Clinical Impression: Hypertensive urgency Instructions: High Blood Pressure Activity Restrictions/Additional Instructions: Please see family doctor this week for re-evaluation of your blood pressure. Your blood pressure may be causing your vision to be blurry.. Your blood pressure has improved and your symptoms have resolved. We have added another blood pressure medication/prescription. Please take this daily and continue your home blood pressure medication as well. Return if worse if any questions or concerns. Your exam and laboratory studies and MRI of the brain are reassuring today. No stroke was evident. Prescriptions: New amlodipine [Norvasc] 10 mg tablet 10 mg PO DAILY Qty: 30 0RF No Action levothyroxine [Synthroid] 100 MCG tablet 100 mcg PO QAM Qty: 0 cholecalciferol (vitamin D3) [Vitamin D3] 1,000 UNIT tablet 1,000 unit PO QDAY Qty: 0 losartan 100 mg tablet 100 mg PO DAILY Qty: 30 0RF losartan 50 mg tablet 50 mg PO DAILY Qty: 30 0RF Referrals: Sudha Yan PA-C [Primary Care Provider] - Stand Alone Forms: Patient Portal/API
[2023-03-08] MEDS: ASPIRIN 81 MG CHEW TAB 324 MG PO (12:57)
--- NOTE | 2023-03-08 13:48 | DI.MRI.S_ITS ---
PROCEDURE: MR HEAD/BRAIN WO CON INDICATIONS: Slurred speech TECHNIQUE: Noncontrast axial T1 spin echo, axial T2 fast spin echo, sagittal and axial FLAIR, coronal T2 fast spin echo, axial gradient echo, axial diffusion and ADC through the brain. COMPARISON: [facility], , MR HEAD/BRAIN WO CON, 01/28/2023, 16:09. FINDINGS: Image quality: Diagnostic CSF spaces: Basal cisterns are patent. Lateral ventricles are symmetric. Volume: Volume loss. Periventricular white matter signal abnormality most commonly seen with small vessel disease. These findings are [id number] Brain: No intracranial hemorrhage. Green-white differentiation is grossly maintained. Craniofacial structures: No displaced fracture. Left mastoid effusion. IMPRESSION: No acute hematoma or infarction. Small left mastoid effusion. Dictated by: Skyler Darden M.D. on 03/08/2023 at 15:33 Approved by: Skyler Darden M.D. on 03/08/2023 at 15:36
--- NOTE | 2023-03-08 14:28 | PC.NURSE ---
Pt medicated for claustrophobia last MRI, obtained order for ativan 0.5mg IV for todays MRI. Pt declined. Pt wearing multiple bracelets and 10 rings. Advised pt she will need to take jewelry off for scan. Pt unable to remove 6 of the 10 rings. Shaheen, technical specialist, advised that leaving rings on can cause stearns to the area. Pt insisted her last MRI she left them on without complication. Pt left for MRI in wheelchair. Jewelry able to be removed was placed in a specimen cup, labeled, and given to at bedside.
[2023-03-08] MEDS: AMLODIPINE 5 MG TABLET 10 MG PO (15:06)
== END 2023-03-08 17:02 | disposition home or self-care (01) ==
PROVIDERS: Emergency Provider Emergency Medicine; PCP Physician Assistant
DX: I16.0 Hypertensive urgency (principal); H53.8 Other visual disturbances; R07.9 Chest pain, unspecified
CPT/HCPCS: 36415; 70450; 70551; 71045; 80053; 82550; 83690; 83735; 84484; 85025; 85610; 85730; 93005; 99284